=== PATIENT | male | born 1955 | race African-American/Black ===

== ENCOUNTER 2019-10-23 15:49 | Inpatient (IN) | payer MEDICAID ==
[~2019-10-23] VITALS: Ht 188 cm; Wt 101.6 kg
[2019-10-23] MEDS ORDERED: SODIUM CHLORIDE 0.9% 500 ML IV ONE (16:32)
[2019-10-23 16:44] LABS: BASOPHILS % 0.9 % (0.0-2.0); EOSINOPHILS % 0.9 % (0.0-5.0); HEMATOCRIT. 42.7 % (42.0-52.0); HEMOGLOBIN. 14.6 g/dL (14.0-18.0); LYMPHOCYTES % 13.3 % (20.0-50.0); MEAN CORPUSCULAR VOLUME 96.5 fL (80.0-94.0); MONOCYTES % 6.6 % (2.0-8.0); NEUTROPHILS % 78.3 % (40.0-76.0); PLATELET 235 x1000/uL (130-400); RED BLOOD CELL COUNT 4.43 mill/uL (4.7-6.1); RED CELL DISTRIBUTION WIDTH 14.3 % (11.6-14.6)
[2019-10-23] MEDS ORDERED: DILTIAZEM HCL 5MG/ML 5ML VIAL IV ONE (16:45)
[2019-10-23 16:49] LABS: CHLORIDE 106 mEq/L (98-107)
[2019-10-23 16:52] LABS: INR 1.2; PROTHROMBIN TIME 12.1 sec (9.6-11.0)
[2019-10-23] MEDS ORDERED: DILTIAZEM HCL 125 MG in DEXT 5% WATER 100 ML IV ONE (17:30)
[2019-10-23] MEDS ORDERED: IPRATROPIUM/ALBUTEROL 0.5-3(2.5)MG/3ML NEB HHN PRN (18:15)
[2019-10-23] MEDS ORDERED: ONDANSETRON HCL 4MG/2ML INJ IV PRN (18:15)
[2019-10-23] MEDS ORDERED: CLONIDINE 0.1MG TABLET PO PRN (18:15)
[2019-10-23] MEDS ORDERED: ACETAMINOPHEN 325MG TABLET PO PRN (18:15)
[2019-10-23] MEDS ORDERED: DIPHENHYDRAMINE 50MG/ML VIAL IV PRN (18:15)
[2019-10-23] MEDS: FUROSEMIDE 40MG/4ML VIAL IV SCH (18:51)
[2019-10-23] MEDS: ENOXAPARIN 30MG/0.3ML SYR SUBCUT SCH (20:00)
[2019-10-23 21:09] LABS: PHOSPHORUS 3.6 mg/dL (2.5-4.9)
[2019-10-23] MEDS ORDERED: DILTIAZEM HCL 5MG/ML 5ML VIAL IV NR (23:33)
[2019-10-24] MEDS ORDERED: DILTIAZEM HCL 125 MG in DEXT 5% WATER 100 ML IV NR (03:00)
[2019-10-24 05:23] LABS: BASOPHILS % 0.7 % (0.0-2.0); EOSINOPHILS % 0.6 % (0.0-5.0); HEMATOCRIT. 40.1 % (42.0-52.0); HEMOGLOBIN. 13.6 g/dL (14.0-18.0); LYMPHOCYTES % 9.3 % (20.0-50.0); MEAN CORPUSCULAR HEMOGLOBIN 32.8 pg (28.0-32.0); MEAN CORPUSCULAR VOLUME 96.6 fL (80.0-94.0); MEAN PLATELET VOLUME 8.9 fl (7.4-10.4); MONOCYTES % 5.4 % (2.0-8.0); PLATELET 212 x1000/uL (130-400); RED BLOOD CELL COUNT 4.16 mill/uL (4.7-6.1); RED CELL DISTRIBUTION WIDTH 14.5 % (11.6-14.6)
[2019-10-24 05:32] LABS: CHLORIDE 105 mEq/L (98-107)
[2019-10-24 05:45] LABS: HDL CHOLESTEROL 27 mg/dL (40-59); LDL CHOLESTEROL 69 mg/dL (5-100)
[2019-10-24] MEDS: ENOXAPARIN 30MG/0.3ML SYR SUBCUT SCH (08:29)
[2019-10-24] MEDS: FUROSEMIDE 40MG/4ML VIAL IV SCH (09:14)
[2019-10-24] MEDS ORDERED: ENOXAPARIN 80MG/0.8ML SYR SUBCUT NR (12:30)
[2019-10-24] MEDS ORDERED: METOPROLOL TARTRATE 25MG TABLET PO NR (15:30)
[2019-10-24 21:20] VITALS: BP 133/83
[2019-10-24] MEDS ORDERED: DEXTROSE 50% WATER 50ML SYRINGE IV PRN (21:30)
[2019-10-24] MEDS: INSULIN LISPRO 100 UNITS/ML SUBCUT SCH (21:30)
[2019-10-24] MEDS: METOPROLOL TARTRATE 25MG TABLET PO SCH (21:43)
[2019-10-24] MEDS: ENOXAPARIN 100MG/ML SYR SUBCUT SCH (21:43)
[2019-10-24] MEDS: BLOOD SUGAR DIAGNOSTIC STRIP TEST SCH (21:44)
[2019-10-24 22:11] LABS: T4 FREE 1.15 ng/dL (0.76-1.46)
[2019-10-24 22:24] VITALS: BP 133/83
[2019-10-24 23:24] VITALS: BP 133/19
[2019-10-25] VITALS (15 sets, daily range): BP systolic 105–148; BP diastolic 55–91
[2019-10-25] MEDS ORDERED: CARV6.2548 PO (05:03)
[2019-10-25] MEDS ORDERED: AMLO10TA80 PO (05:03)
[2019-10-25] MEDS ORDERED: FURO-151 PO (05:03)
[2019-10-25] MEDS ORDERED: SIMV5TAB58 PO (05:03)
[2019-10-25] MEDS ORDERED: APIX5TAB MT (05:03)
[2019-10-25] MEDS ORDERED: SIME80TA15 MT (05:03)
[2019-10-25] MEDS ORDERED: ASPI-1497 PO (05:03)
[2019-10-25] MEDS: BLOOD SUGAR DIAGNOSTIC STRIP TEST SCH ×4 (05:55→21:42)
[2019-10-25] MEDS: INSULIN LISPRO 100 UNITS/ML SUBCUT SCH ×4 (07:20→21:00)
[2019-10-25] MEDS: METOPROLOL TARTRATE 25MG TABLET PO SCH ×2 (08:28→21:41)
[2019-10-25] MEDS: FUROSEMIDE 40MG/4ML VIAL IV SCH (08:28)
[2019-10-25] MEDS: ENOXAPARIN 100MG/ML SYR SUBCUT SCH ×2 (08:29→21:42)
[2019-10-25] MEDS ORDERED: DILTIAZEM HCL 5MG/ML 5ML VIAL IV SCH (09:00)
[2019-10-25 11:17] LABS: BASOPHILS % 0.8 % (0.0-2.0); EOSINOPHILS % 1.4 % (0.0-5.0); HEMATOCRIT. 38.9 % (42.0-52.0); HEMOGLOBIN. 13.5 g/dL (14.0-18.0); LYMPHOCYTES % 11.2 % (20.0-50.0); MEAN CORPUSCULAR HEMOGLOBIN 33.3 pg (28.0-32.0); MEAN CORPUSCULAR VOLUME 96.3 fL (80.0-94.0); MEAN PLATELET VOLUME 10.1 fl (7.4-10.4); MONOCYTES % 6.4 % (2.0-8.0); NEUTROPHILS % 80.2 % (40.0-76.0); PLATELET 209 x1000/uL (130-400); RED BLOOD CELL COUNT 4.04 mill/uL (4.7-6.1); RED CELL DISTRIBUTION WIDTH 14.5 % (11.6-14.6)
[2019-10-25] MEDS: DILTIAZEM HCL 125 MG in DEXT 5% WATER 100 ML IV SCH ×2 (11:17→22:41)
[2019-10-25 11:23] LABS: CHLORIDE 105 mEq/L (98-107)
[2019-10-25] MEDS: DILTIAZEM HCL 60MG TABLET PO SCH ×4 (12:00→23:57)
[2019-10-26] VITALS (12 sets, daily range): BP systolic 76–126; BP diastolic 36–79
[2019-10-26] MEDS: DILTIAZEM HCL 125 MG in DEXT 5% WATER 100 ML IV SCH (05:16)
[2019-10-26] MEDS: DILTIAZEM HCL 60MG TABLET PO SCH (06:00)
[2019-10-26] MEDS: BLOOD SUGAR DIAGNOSTIC STRIP TEST SCH ×4 (06:09→21:16)
[2019-10-26 06:58] LABS: BASOPHILS % 0.7 % (0.0-2.0); EOSINOPHILS % 1.9 % (0.0-5.0); HEMATOCRIT. 38.7 % (42.0-52.0); HEMOGLOBIN. 13.2 g/dL (14.0-18.0); LYMPHOCYTES % 14.4 % (20.0-50.0); MEAN CORPUSCULAR VOLUME 96.9 fL (80.0-94.0); MONOCYTES % 7.6 % (2.0-8.0); NEUTROPHILS % 75.4 % (40.0-76.0); PLATELET 224 x1000/uL (130-400); RED CELL DISTRIBUTION WIDTH 14.6 % (11.6-14.6)
[2019-10-26] MEDS: INSULIN LISPRO 100 UNITS/ML SUBCUT SCH ×4 (07:20→21:00)
[2019-10-26 07:23] LABS: CHLORIDE 104 mEq/L (98-107)
[2019-10-26] MEDS: FUROSEMIDE 40MG/4ML VIAL IV SCH (09:34)
[2019-10-26] MEDS: ENOXAPARIN 100MG/ML SYR SUBCUT SCH (09:34)
[2019-10-26] MEDS: METOPROLOL TARTRATE 25MG TABLET PO SCH ×2 (09:34→21:37)
[2019-10-26] MEDS: DILTIAZEM HCL 90MG TABLET PO SCH ×2 (12:00→17:45)
[2019-10-26] MEDS: APIXABAN 5 MG TABLET PO SCH (17:45)
[2019-10-27] VITALS (9 sets, daily range): BP systolic 96–148; BP diastolic 63–96
[2019-10-27] MEDS: DILTIAZEM HCL 90MG TABLET PO SCH ×3 (00:48→12:34)
[2019-10-27] MEDS: BLOOD SUGAR DIAGNOSTIC STRIP TEST SCH ×2 (05:36→12:27)
[2019-10-27 06:56] LABS: BASOPHILS % 1.2 % (0.0-2.0); EOSINOPHILS % 2.3 % (0.0-5.0); HEMATOCRIT. 39.6 % (42.0-52.0); HEMOGLOBIN. 13.5 g/dL (14.0-18.0); LYMPHOCYTES % 16.6 % (20.0-50.0); MEAN CORPUSCULAR HEMOGLOBIN 32.7 pg (28.0-32.0); MEAN PLATELET VOLUME 9.9 fl (7.4-10.4); NEUTROPHILS % 70.9 % (40.0-76.0); PLATELET 237 x1000/uL (130-400); RED BLOOD CELL COUNT 4.13 mill/uL (4.7-6.1); RED CELL DISTRIBUTION WIDTH 14.1 % (11.6-14.6)
[2019-10-27] MEDS: INSULIN LISPRO 100 UNITS/ML SUBCUT SCH ×2 (07:20→12:20)
[2019-10-27 07:43] LABS: CHLORIDE 104 mEq/L (98-107)
[2019-10-27] MEDS: APIXABAN 5 MG TABLET PO SCH (08:17)
[2019-10-27] MEDS: METOPROLOL TARTRATE 25MG TABLET PO SCH (08:18)
[2019-10-27] MEDS ORDERED: DILT90TA2 PO (13:03)
[2019-10-27] MEDS ORDERED: METO25TA6 PO (13:03)
== END 2019-10-27 17:22 | disposition home or self-care (01) | DRG 201 ==
LOC: ER 15:49 → MICUSO 18:04 → EDBEDREQ 18:14 → EDBEDREQSVC 19:28 → EDBEDREQTM 19:28 → EDBEDREQSVC 10-24 17:57 → ENRESERV 10-24 19:43 → 3WST 10-24 21:15
PROVIDERS: ADMIT Internal Medicine; ATTEND Internal Medicine
DX: I48.20 Chronic atrial fibrillation, unspecified (principal); I11.0 Hypertensive heart disease with heart failure; K76.1 Chronic passive congestion of liver; F10.10 Alcohol abuse, uncomplicated; F17.200 Nicotine dependence, unspecified, uncomplicated; R00.0 Tachycardia, unspecified; R74.0 Nonspecific elevation of levels of transaminase and lactic acid dehydrogenase [LDH]; I27.20 Pulmonary hypertension, unspecified; I42.9 Cardiomyopathy, unspecified; Y90.9 Presence of alcohol in blood, level not specified; I50.23 Acute on chronic systolic (congestive) heart failure; N17.0 Acute kidney failure with tubular necrosis; E44.0 Moderate protein-calorie malnutrition
CPT/HCPCS: 36415; 71045; 80048; 80053; 80061; 82962; 83735; 83880; 84100; 84439; 84443; 84481; 84484; 85025; 93005; 93306; 93970; 99291; J1650; J1940; J3490; J7040; J7060